=== PATIENT | male | born 2000 | race Caucasian/White ===

== ENCOUNTER → 2024-08-22 21:49 | Outpatient (BNV) | payer BC, SELFPAY | PROVIDERS: Emergency Provider Emergency Medicine Emergency Medical Services; Visit Provider Specialist | DX: S52.362A Displaced segmental fracture of shaft of radius, left arm, initial encounter for closed fracture (principal) | CPT/HCPCS: 73080; 73090 ==

== ENCOUNTER 2024-08-22 22:31 | Emergency (ER) | payer BC, SELFPAY ==
--- NOTE | ~2024-08-22 | XR_ITS ---
CLINICAL HISTORY: fall pain 3 view left elbow Comparison: None provided Findings: There is a mildly displaced proximal radial shaft fracture. No fracture or dislocation in the elbow. No significant Degenerative changes or erosions. No joint effusion. No radiopaque foreign body. IMPRESSION: 1. Mildly displaced proximal radial shaft fracture. No dislocation. This document has been electronically signed by: Rocio Richard MD on 08/22/2024 23:12:25
--- NOTE | ~2024-08-22 | XR_ITS ---
CLINICAL HISTORY: fall pain 2 view left forearm Comparison: None provided Findings: There is an acute mildly displaced proximal radial shaft fracture. No additional acute fractures. No dislocation. No joint effusion. No significant arthritic change. No radiopaque foreign body. IMPRESSION: 1. Mildly displaced proximal radial shaft fracture with no dislocation. This document has been electronically signed by: Rocio Richard MD on 08/22/2024 23:07:45
[2024-08-22 22:38] VITALS: BP 117/57; PULSE 82; RESP 20; TEMP 37; O2SAT 99; BMI 18.2
--- NOTE | 2024-08-22 23:41 | ED_ITS ---
HPI - Extremity Problem General Chief complaint: Extremity Problem Stated complaint: RIGHT ARM INJURY; BROKEN? Time Seen by Provider: 08/22/24 23:21 History of Present Illness HPI Narrative: Patient is a 24-year-old male fell off a skateboard brace himself using the left upper extremity complaining of pain to the left forearm area. Denies any head strike denies any loss of consciousness denies any recreational drugs denies any neck pain patient from home. Related Data Previous Rx's ?Medication ?Instructions ?Recorded ibuprofen 400 mg tablet 400 mg PO Q6H PRN pain #20 t abs 08/22/24 oxycodone 5 mg tablet 5 mg PO Q8H PRN pain #7 tabs 08/22/24 Allergies Allergy/AdvReac Type Severity Reaction Status Date / Time No Known Allergies Allergy Verified 08/22/24 22:39 Review of Systems Review of Systems: No focal weakness Pain localized to the left forearm area PMFSH Past Medical History Attestation statement: The following information was validated with the patient. Physical Exam Vital Signs: Vital Signs: Last Vital Signs Temp 98.6 F 08/22/24 22:38 Pulse 82 08/22/24 22:38 Resp 20 08/22/24 22:38 BP 117/57 L 08/22/24 22:38 Pulse Ox 99 08/22/24 22:38 O2 Del Method Room Air 08/22/24 22:38 BMI result Body Mass Index 18.2 Appearance: Alert. Oriented X3. No acute distress. Eyes: Pupils equal, round and reactive to light. ENT: Pharynx normal. Neck: Normal inspection. Neck supple. No lymph nodes noted. No crepitus CVS: Normal heart rate and rhythm. Pulses normal. Normal S1 and S2 Respiratory: No respiratory distress. Breath sounds normal. No Wheezing. No rales Abdomen: Soft and nontender. No rigidity. No distention. good BS x4 Skin: Skin warm and dry. Normal skin color. Normal skin turgor. Extremities: No lower extremity edema. Examination of the left forearm show pain to the proximal left forearm area. There is no gross tenderness on palpation of the elbow. There is no gross deformity. There is good movement of the wrist. There is no anatomical snuffbox tenderness. There is good opposition of the thumb. There is good movement of the digits. Capillary refill is less than 2 seconds. Sensation over the axillary median radial and ulnar nerve intact. Skin was intact. Neuro: Oriented X 3. No motor deficit. No sensory deficit. Moving all extermities. No slurred speech Medical Decision Making Medical Decision Making [facility] Narrative: My interpretation of patient's x-ray showed a proximal radial fracture of the left forearm. Orthopedics was consulted. Will splint and have patient follow- up on an outpatient basis. Currently in stable condition. There is no head injury. There is no neck pain. Lungs are clear. Differential Diagnosis Differential Diagnoses: The differential diagnosis associated with the p resentation includes Elbow fracture, contusion, dislocation, radial ulnar fracture Admission/Observation Consideration of admission/observation: Escalation of care including admission/observation considered Pain is controlled well-appearing no need to stay Consult Healthcare Provider Management of the patient was discussed with: Chicken Tender (Orthopedic was consulted will splint and follow-up) Lab Data [facility] Lab Attestation statement: I reviewed the patient's lab results. Independent Interpretation I performed an independent interpretation of an: Plain X-Ray (Proximal left radial fracture noted) Radiology Impression Discussion of test interpretation with radiology: I have reviewed the radiologist's reading. Procedures Orthopedic Splinting/Casting Left forearm: Side: left Upper Extremity Injury Location: forearm Upper Extremity Immobilizer: posterior splint (Long-arm posterior splint was placed.) Additional Comments: Post splint neurovascularly intact Discharge Plan Discharge Clinical Impression: Fracture of proximal end of radius Patient Disposition: Home, Self-Care Instructions: Elbow Fracture (ED), Splint Care (ED) Prescriptions: New ibuprofen 400 mg tablet 400 mg PO Q6H PRN (Reason: pain) Qty: 20 0RF oxycodone 5 mg tablet 5 mg PO Q8H PRN (Reason: pain) Qty: 7 0RF Rx Instructions: Partial Fill upon patient request. Referrals: Corey Winchester MD [Physician, Orthopedics] - 08/25/24 Print Language: Hebrew
[2024-08-23 00:25] VITALS: BP 117/70; PULSE 85; RESP 16; TEMP 36.8; O2SAT 97
[2024-08-23] MEDS: HYDROcodone Bit/Acetam 5/325 TABLET 1 TAB PO (00:58)
[2024-08-23 01:09] VITALS: BP 117/70; PULSE 85; RESP 16; TEMP 36.8; O2SAT 97
== END 2024-08-23 01:10 | disposition home or self-care (01) ==
PROVIDERS: Emergency Provider Emergency Medicine Emergency Medical Services
DX: S52.182A Other fracture of upper end of left radius, initial encounter for closed fracture (principal); V00.131A Fall from skateboard, initial encounter; Y93.51 Activity, roller skating (inline) and skateboarding; Y92.410 Unspecified street and highway as the place of occurrence of the external cause; Y99.9 Unspecified external cause status
CPT/HCPCS: 29105; 73080; 73090; 99283; 99284